=== PATIENT | male | born 1980 | race Caucasian/White ===

== ENCOUNTER 2017-07-24 00:14 | Emergency (ER) | payer SELFPAY ==
[~2017-07-24] VITALS: Wt 77.3 kg
[2017-07-24 00:19] VITALS: PULSE 91; TEMP 97
[2017-07-24 00:41] LABS: BASO # 0.1 (0.0-0.2); BASO % 1.2 % (0.0-2.0); EOS # 0.3 (0.0-0.7); EOS % 2.5 % (0-4.0); GRAN # 5.2 (1.4-6.5); HEMATOCRIT 46.3 % (42.0-52.0); HEMOGLOBIN 16.1 g/dl (13.5-18.0); LYMPH # 3.8 (1.2-3.4); LYMPH % 37.8 % (20.0-51.0); MEAN CELL VOLUME 94 fl (80.0-100.0); MEAN CORPUSCULAR HEMOGLOBIN 33 pg (27.0-31.0); MEAN CORPUSCULAR HGB CONC 35 g/dl (33.0-37.0); MEAN PLATELET VOLUME 9.2 fl (7.4-10.4); MONO # 0.7 (0.1-0.6); MONO % 6.8 % (1.7-9.3); PLATELET COUNT 289 K/mm3 (130-400); RED BLOOD COUNT 4.92 M/mm3 (4.20-5.60); REDCELL DISTRIBUTION WIDTH-CV 12.5 % (11.5-14.5)
[2017-07-24 01:18] LABS: ALBUMIN 4.5 gm/dL (3.5-5.0); BILIRUBIN,TOTAL 0.2 mg/dL (0.0-1.0); CALCIUM 8.5 mg/dL (8.4-10.2); CREATININE, serum 0.84 mg/dL (0.66-1.25); POTASSIUM 4.5 mmol/L (3.4-5.0); TOTAL PROTEIN 7.9 gm/dL (6.4-8.2)
[2017-07-24 03:03] LABS: CALCIUM 8.4 mg/dL (8.4-10.2); CREATININE, serum 0.78 mg/dL (0.66-1.25); POTASSIUM 4.1 mmol/L (3.4-5.0)
== END 2017-07-24 05:36 | disposition home or self-care (01) ==
LOC: COL.ER 00:14
PROVIDERS: Emergency Medicine; Physician Assistant
DX: S00.11XA Contusion of right eyelid and periocular area, initial encounter (principal); F10.129 Alcohol abuse with intoxication, unspecified; Y90.8 Blood alcohol level of 240 mg/100 ml or more; E87.0 Hyperosmolality and hypernatremia; F17.200 Nicotine dependence, unspecified, uncomplicated; W01.198A Fall on same level from slipping, tripping and stumbling with subsequent striking against other object, initial encounter
CPT/HCPCS: J7030